=== PATIENT | male | born 1970 | race Caucasian/White ===

== ENCOUNTER 2017-02-13 09:07 | Observation (INO) ==
--- NOTE | 2017-02-13 09:49 | Emergency Department Note ---
Disposition Clinical Impression: Chest pain, rule out acute myocardial infarction Disposition: Admitted As Inpatient Condition: Good Time of Disposition: 12:31 Chest Pain HPI - General Chief Complaint: ED Arrhythmia/Palpitations Stated Complaint: DIZZY/CP Time Seen by Provider: 02/13/17 09:37 Source: patient, family Mode of arrival: private vehicle Limitations: no limitations Vital Signs Reviewed: Yes Nursing Notes Reviewed: Yes - History of Present Illness HPI Narrative: 46 year old male with PMHx of HTN, DM, HLD presentes to ED with CC of chest pressure, dizziness, diaphoresis, that started at 3am this morning and woke him up from his sleep. He was able to calm himself down and go back to sleep. When he got up at 7am and went to walk the dogs, his chest pressure came back. He describes his symptoms as typical chest pain that is substernal and non radiating. He admits to nausea without vomiting, no syncope. admits to diaphoresis, palpitations. He denies diarrhea, denies fever, chills. He admits to shortness of breath. Denies history of MN. His chest pain is non pleuritic in nature. Admits to weakness. Denies hematuria/hematochezia. He denies current chest pain/pressure. Pt complaint: chest pain Onset (ago): hour(s) Duration: intermittent Onset: during exertion Pain Location: substernal Severity scale (1-10): 8 Quality: heaviness Pain Radiation: none Improves with: rest Worsens with: exertion Associated symptoms: Reports: nausea, diaphoresis, palpitations. Denies: vomiting Treatments prior to arrival chest pain: none - Related Data Home Medications Medication Instructions Recorded Confirmed Lisinopril [Zestril] 10 mg PO DAILY 02/13/17 02/13/17 Allergies Allergy/AdvReac Type Severity Reaction Status Date / Time shellfish derived Allergy Anaphylaxis Verified 02/13/17 09:08 All systems ED: reviewed and negative except as stated. Chest Pain PMH - Past Medical History Medical history: Reports: diabetes, hyperlipidemia, hypertension Psychiatric history: Reports: no psych history - Social History Smoking Status: Current every day smoker Alcohol use: Reports: occasionally Drug use: Reports: none Physical Exam - General Limitations: no limitations General appearance: alert, in no apparent distress, lethargic - Head Head exam: atraumatic, normocephalic - Eye Eye exam: Present: normal appearance - Neck Neck exam: Present: normal inspection, trachea midline - Chest Chest inspection: Present: normal inspection, symmetric chest wall rise - Respiratory Respiratory exam: Present: normal lung sounds bilaterally - Cardiovascular Cardiovascular exam: Present: regular rate, normal rhythm, +S1, +S2 - Abdominal Exam Abdominal exam: Present: soft, Non-Tender, normal bowel sounds - Extremities Exam Extremities exam: Present: normal inspection. Absent: pedal edema - Back Exam Back exam: Present: normal inspection - Neurological Exam Neurological exam: Present: alert, oriented X3 - Psychiatric Psychiatric exam: Present: anxious - Skin Skin exam: Present: warm, dry, intact Course Vital Signs Temperature 97.5 F L 02/13/17 09:08 Pulse Rate 100 02/13/17 09:08 Respiratory Rate 16 02/13/17 09:08 Blood Pressure 159/104 02/13/17 09:08 O2 Sat by Pulse Oximetry 100 02/13/17 09:08 Temperature 97.5 F L 02/13/17 09:08 Pulse Rate 93 02/13/17 12:49 Respiratory Rate 18 02/13/17 13:00 Blood Pressure 118/55 02/13/17 13:00 O2 Sat by Pulse Oximetry 99 02/13/17 12:49 Oxygen Delivery Oxygen Delivery Room Air Chest Pain - MDM Narrative Medical decision making narrative: EKG shows no signs of ischemia. Chest xray showed no acute process. CBC within normal limits. BMP showed potassium of 5. Troponin was negative, chest xray showed no acute process. Patient does have significant risk factors for MN including HTN, HLD, diabetes. He will be admitted to observation as chest pain rule out. Spoke with Lexis Wakefield NP from hospitalist service, who has accepted the patient. - Medical Records Medical records reviewed: Yes I reviewed the patient's medical records. - Lab Data Lab results reviewed: Yes I reviewed the patient's lab results. Result diagrams: 02/13/17 10:23 02/13/17 10:23 Lab Results 02/13/17 02/13/17 02/13/17 Range/Units 10:23 10:23 10:23 WBC 7.1 (4.3-11.1) K/mcL RBC 4.76 (4.19-5.50) M/mcL Hgb 14.7 (12.9-16.9) g/dL Hct 45.7 (37.5-50.1) % MCV 96.0 (83.0-100.0) fL MCH 30.9 (28.0-33.3) pg MCHC 32.2 (31.6-35.5) g/dL RDW 12.9 (11.5-14.5) % Plt Count 200 (140-400) K/mcL MPV 9.8 (9.4-12.4) fL Immature Gran % 0.4 (0-4) % Seg Neutrophils % 92.6 % Lymphocytes % 5.2 % Monocytes % 1.7 % Eosinophils % 0.0 % Basophils % 0.1 % Neutrophils # 6.5 (1.6-8.9) K/mcL Lymphocytes # 0.4 L (0.6-4.6) K/mcL Monocytes # 0.1 (0.0-1.3) K/mcL Eosinophils # 0.0 (0.0-0.6) K/mcL Basophils # 0.0 (0.0-0.2) K/mcL PT (9.4-12.1) Seconds INR APTT (26.0-36.0) Seconds Sodium 137 (136-145) mEq/L Potassium 5.0 H (3.5-4.5) mEq/L Chloride 101 (98-109) mEq/L Carbon Dioxide 19 (19-29) mEq/L BUN 25 (8-26) mg/dL Creatinine 1.09 (0.72-1.25) mg/dL Est GFR ( Amer) > 60 (> 60) Est GFR (Non-Af Amer) > 60 (> 60) BUN/Creatinine Ratio 23 (6-26) Glucose 67 L (70-99) mg/dL Calculated Osmolality 287 (280-300) Calcium 9.9 (8.6-10.8) mg/dL Troponin I 0.01 (0-0.03) ng/mL Urine Color (Yellow) Urine Clarity (Clear) Urine pH (5.0-8.0) pH Units Ur Specific [place] (1.010-1.025) Urine Protein (Neg-Trace) mg/dL Urine Glucose (UA) (Normal) mg/dL Urine Ketones (Negative) mg/dL Urine Blood (Negative) Urine Nitrite (Negative) Urine Bilirubin (Negative) Urine Urobilinogen (Normal) mg/dL Ur Leukocyte Esterase (Negative) Ur Culture Indicated? (NO) 02/13/17 02/13/17 Range/Units 10:23 10:36 WBC (4.3-11.1) K/mcL RBC (4.19-5.50) M/mcL Hgb (12.9-16.9) g/dL Hct (37.5-50.1) % MCV (83.0-100.0) fL MCH (28.0-33.3) pg MCHC (31.6-35.5) g/dL RDW (11.5-14.5) % Plt Count (140-400) K/mcL MPV (9.4-12.4) fL Immature Gran % (0-4) % Seg Neutrophils % % Lymphocytes % % Monocytes % % Eosinophils % % Basophils % % Neutrophils # (1.6-8.9) K/mcL Lymphocytes # (0.6-4.6) K/mcL Monocytes # (0.0-1.3) K/mcL Eosinophils # (0.0-0.6) K/mcL Basophils # (0.0-0.2) K/mcL PT 10.0 (9.4-12.1) Seconds INR 0.9 APTT 31.0 (26.0-36.0) Seconds Sodium (136-145) mEq/L Potassium (3.5-4.5) mEq/L Chloride (98-109) mEq/L Carbon Dioxide (19-29) mEq/L BUN (8-26) mg/dL Creatinine (0.72-1.25) mg/dL Est GFR ( Amer) (> 60) Est GFR (Non-Af Amer) (> 60) BUN/Creatinine Ratio (6-26) Glucose (70-99) mg/dL Calculated Osmolality (280-300) Calcium (8.6-10.8) mg/dL Troponin I (0-0.03) ng/mL Urine Color Yellow (Yellow) Urine Clarity Clear (Clear) Urine pH 5.5 (5.0-8.0) pH Units Ur Specific [place] 1.016 (1.010-1.025) Urine Protein Negative (Neg-Trace) mg/dL Urine Glucose (UA) Normal (Normal) mg/dL Urine Ketones 80 H (Negative) mg/dL Urine Blood Negative (Negative) Urine Nitrite Negative (Negative) Urine Bilirubin Negative (Negative) Urine Urobilinogen Normal (Normal) mg/dL Ur Leukocyte Esterase Negative (Negative) Ur Culture Indicated? NO (NO) - Radiology Data Radiology results reviewed: Yes I reviewed the patient's radiology results. - EKG Data EKG attestation: Yes I reviewed and interpreted this EKG. EKG results narrative: sinus rhythm, normal axis. Ventricular rate 97, WI interval 152, QRS duration: 112, Qt/Qtc: 370/424, P-R-T axes: 48 42 43, no acute ST changes, no signs of ischemia. Heart Score - Score History: Slightly Suspicious EKG: Normal Age: 45-65 Risk Factors: Equal/Greater than 3 risk factor or history of atherosclerotic disease Troponin: Less than normal limit HEART Score Total: 3
[2017-02-13] MEDS ORDERED: Ondansetron 4 MG/2 ML VIAL IVP ONE (10:00)
[2017-02-13] MEDS ORDERED: 0.9 % Sodium Chloride 1,000 ML IVC ONE (10:03)
[2017-02-13] MEDS ORDERED: Aspirin 81 MG TAB.CHEW PO ONE (10:03)
--- NOTE | 2017-02-13 10:35 | Emergency Department Note ---
START Narrative - START START: I examined this patient and my medical decision-making was reviewed with the DRIVER HELPER/PA/Advanced Practice Nurse/Resident Physician. I agree with the documented findings, disposition and treatment plan as described except to the extent set forth below. I did see the patient spoke with him and his and he does have exertional chest pain, diaphoresis, history of diabetes and hypertension. The patient's EKG shows normal sinus rhythm with rate of 97 without ischemic change. Testing is pending patient will likely be admitted for further evaluation of possible acute coronary syndrome. No pleuritic aspect or radiation of the pain. [id number]
[2017-02-13 10:43] LABS: Bilirubin,Urine Negative (Negative); Blood,Urine Negative (Negative); Clarity,Urine Clear (Clear); Color,Urine Yellow (Yellow); Glucose,Urine (UA) Normal (Normal); Ketones,Urine 80 mg/dL (Negative); Leukocyte Esterase,Urine Negative (Negative); Nitrite,Urine Negative (Negative); PH,Urine 5.5 pH Units (5.0-8.0); Protein,Urine Negative (Neg-Trace); Specific Gravity,Urine 1.016 (1.010-1.025); Urobilinogen,Urine Normal (Normal)
[2017-02-13 11:01] LABS: Basophils % 0.1 %; Hematocrit 45.7 % (37.5-50.1); Hemoglobin 14.7 g/dL (12.9-16.9); Immature Granulocytes % 0.4 % (0-4); Lymphocytes # 0.4 K/mcL (0.6-4.6); Lymphocytes % 5.2 %; Mean Corpuscular HGB Conc 32.2 g/dL (31.6-35.5); Mean Corpuscular Hemoglobin 30.9 pg (28.0-33.3); Mean Platelet Volume 9.8 fL (9.4-12.4); Monocytes # 0.1 K/mcL (0.0-1.3); Monocytes % 1.7 %; Neutrophils # 6.5 K/mcL (1.6-8.9); Platelet Count 200 K/mcL (140-400); Red Blood Count 4.76 M/mcL (4.19-5.50); Red Cell Distribution Width 12.9 % (11.5-14.5); Segmented Neutrophils % 92.6 %
[2017-02-13 11:04] LABS: INR 0.9
[2017-02-13 11:12] LABS: BUN/Creatinine Ratio 23 (6-26); Blood Urea Nitrogen 25 mg/dL (8-26); Calcium 9.9 mg/dL (8.6-10.8); Carbon Dioxide 19 mEq/L (19-29); Chloride 101 mEq/L (98-109); Glucose 67 mg/dL (70-99); Osmolality,Calculated 287 (280-300); Sodium 137 mEq/L (136-145); eGFR For African Americans > 60 (> 60); eGFR For Non-African Americans > 60 (> 60)
--- NOTE | 2017-02-13 12:54 | Electrocardiograph Report ---
[facility] Test Date: 2017-02-13 Pat Name: William Perez Department: 102 Room: Gender: M Receipt And Report Clerk: : 1970 Requested By: Wellington Farah Order Number: [id number] Reading MD: Memo Garcia DO Measurements Intervals [place] Rate: 97 P: 48 [place]: 152 QRS: 42 QRSD: 112 T: 43 QT: 370 QTc: 424 Interpretive Statements SINUS RHYTHM MODERATE INTRAVENTRICULAR CONDUCTION DELAY [110+ ms QRS DURATION] Electronically Signed On 02-13-2017 12:52:48 EDT by Memo Garcia DO
[2017-02-13] MEDS ORDERED: Ondansetron 4 MG/2 ML VIAL IVP PRN (14:14)
[2017-02-13] MEDS ORDERED: Naloxone 0.4 MG/ML INJ IVP PRN (14:14)
[2017-02-13] MEDS ORDERED: Acetaminophen 325 MG TABLET PO PRN (14:14)
[2017-02-13] MEDS ORDERED: D5% in Water 1,000 ML IVC PRN (15:01)
[2017-02-13] MEDS ORDERED: *HR* Dextrose 50 % in Water (Syg) 50 ML SYRINGE IVP PRN (15:01)
[2017-02-13] MEDS ORDERED: Dextrose Gel 15 GM PO PRN ×2 (15:01)
--- NOTE | 2017-02-13 15:04 | Internal Med History&Physical ---
<Roney Mcclain - Last Filed: 02/13/17 19:37> Date of Encounter: 02/13/17 Internal Medicine - H&P: HPI History of present illness: Mr. Perez is a 46 year old male Internal Medicine - H&P: Meds Aspirin [Lo-Dose Aspirin EC] 81 mg PO DAILY 02/13/17 [History] Atorvastatin [Lipitor] 10 mg PO HS 02/13/17 [History] Lisinopril [Zestril] 10 mg PO DAILY 02/13/17 [History] Meloxicam 15 mg PO DAILY 02/13/17 [History] Metformin HCl [Metformin HCl ER] 500 mg PO DAILY 02/13/17 [History] Multivitamin [One Daily Essential] 1 tab PO DAILY 02/13/17 [History] [place]-3/Dha/Epa/Fish Oil [Fish Oil 1,000 mg Softgel] 1,000 mg PO DAILY 02/13/17 [History] Allergies shellfish derived Allergy (Verified 02/13/17 09:08) Anaphylaxis All Systems PM: A 10-system review of systems was performed and is negative for pertinent findings except as documented above in the HPI. - Constitutional Vitals: Temp Pulse Resp BP Pulse Ox 98.0 F 99 16 129/78 98 02/13/17 18:50 02/13/17 18:50 02/13/17 18:50 02/13/17 18:50 02/13/17 18:50 Internal Med - H&P Results - Labs CBC & Chem 7: 02/13/17 10:23 02/13/17 10:23 Labs: Cardiac Enzymes 02/13/17 Range/Units 15:59 Troponin I 0.01 (0-0.03) ng/mL - Attending Attestation I examined this patient and my medical decision-making was reviewed with the Advanced Practice Nurse. I agree with the documented findings, disposition and treatment plan as described except to the extent set forth below. Patient is currently chest pain-free. He described an episode of chest tightness with diaphoresis at home brought on by exertion. His heart auscultation reveals regular rate and rhythm S1-S2 with no murmurs. Plan: Monitor on telemetry. Trend troponin. Obtain stress test in the morning. <Lexis Wakefield - Last Filed: 02/13/17 23:04> Date of Encounter: 02/13/17 Time of Encounter: 15:02 Assessment and Plan (1) Chest pain, rule out acute myocardial infarction Current visit: Yes Status: Acute Patient with 2 episodes of chest pain accompanied by shortness of breath, diaphoresis and lightheadedness. Patient has risk factors of HTN, DM, obesity, HLD. EKG showed sinus rhythm, no ST elevations or depressions. Troponin negative at 0.01. CXR showed no acute cardiopulmonary process. continuous traffic monitor specialist serial troponins stress test and echocardiogram in the morning. (2) Hyperkalemia Current visit: Yes Status: Acute Potassium of 5.0. Kayexalate ordered. Recheck chemistry in the morning. (3) HTN (hypertension) Current visit: Yes Status: Acute Continue home doses of lisinopril Qualifiers: Hypertension type: essential hypertension Qualified Code(s): I10 - Essential (primary) hypertension (4) Type 2 diabetes mellitus Current visit: Yes Status: Acute diabetic, heart healthy diet. Hold metformin check blood sugars ACHS sliding scale correction dose ACHS hypoglycemic protocol. Qualifiers: Diabetes mellitus complication status: without complication Diabetes mellitus terminal gauger insulin use: without mcfp use Qualified Code(s): E11.9 - Type 2 diabetes mellitus without complications (5) DVT prophylaxis Current visit: Yes Status: Acute anti-embolic stockings Lovenox 40mg SQ daily. Internal Medicine - H&P: HPI Chief complaint: chest pain Admitted From: Emergency Dept Plans for Post Hospital Care: Home History of present illness: Mr. Perez is a 46 year old male with hypertension, hyperlipidemia, and type 2 diabetes presents to the emergency department today with complaints of chest pain. Patient reports that he was awoken from sleep at 3 AM with chest pain, lightheadedness, and sweating, he describes the pain as dull pressure, and reports he, himself down and went back to sleep. He got up this morning and went to walk his dog to 7 AM and his symptoms returned, with the chest pain in the middle of his chest, nonradiating dull pressure, with sweating, nausea, and palpitations. He reports the chest pain lasts approximately half hour in the palpitations continued. His symptoms were resolved by the time he presented to the emergency department. Evaluation in the emergency department revealed mild hyperkalemia with potassium of 5.0. EKG showed sinus rhythm, chest x-ray showed no acute cardiopulmonary process, troponin was negative at 0.01. On exam , patient alert and oriented, in no acute distress, heart has regular rate and rhythm, lungs are clear bilaterally to auscultation, no peripheral edema. Past Med Surg Social Fam HX - Past Medical History Medical history: diabetes, hyperlipidemia, hypertension Psychiatric history: no psych history - Past Surgical History Surgical History: orthopedic, other (knee surgery, neck surgury) - Social History Smoking Status: Current some day smoker (cigars) Smokeless Tobacco Status: Yes Alcohol use: occasionally Drug use: none - Family History Mother Living Status: Still Living Hx Family Cardiac Disorders: Yes (HTN) Hx Family Endocrine Disorder: Yes (DM) Father Living Status: Age at : 60 Hx Family Cardiac Disorders: Yes (CHF, HTN) Hx Family Respiratory Disorders: Yes (COPD) All Systems PM: A 10-system review of systems was performed and is negative for pertinent findings except as documented above in the HPI. - Constitutional Constitutional: no chills, no fever(s), no night sweats - EENT Eyes: no change in vision, no discharge, no pain, no photophobia Ears: no ear discharge, no ear pain, no tinnitus Nose, mouth and throat: no dysphagia, no nasal discharge, no neck pain, no sore throat - Cardiovascular Cardiovascular ROS IM: chest pain, diaphoresis, dyspnea, lightheadedness, palpitations, no syncope - Respiratory Respiratory: dyspnea, no cough, no wheezing, no excessive phlegm production - Gastrointestinal Gastrointestinal: no abdominal pain, no diarrhea, no hematemesis, no hematochezia, no melena, no nausea, no vomiting - Musculoskeletal Musculoskeletal ROS IM: no numbness, no tingling - Integumentary Integumentary IM: no rash, no unusual bruising - Neurological Neurological ROS: no confusion, no convulsions, no focal weakness, no numbness, no tingling, no tremor(s) - Hematologic/Lymphatic Hematologic/Lymphatic: no easy bruising - Constitutional Vitals: Temp Pulse Resp BP Pulse Ox 97.6 F 86 15 129/80 100 02/13/17 14:58 02/13/17 14:58 02/13/17 14:58 02/13/17 14:58 02/13/17 14:58 General appearance: Present: A&O X 3 - Head Head exam: Present: atraumatic, normocephalic - Eye Eye exam: Present: PERRL, conjuntiva pink, sclera anicteric Pupils: Present: PERRL - Neck Neck exam general surgery: Present: supple, trachea midline. Absent: lymphadenopathy - Respiratory Respiratory exam: Present: CTAB. Absent: accessory muscle use, rales, rhonchi, wheezes - Cardiovascular Cardiovascular exam: Present: RRR, +S1, +S2. Absent: diastolic murmur, gallop, rubs, systolic murmur - GI/Abdominal GI/Abdominal exam: Present: normal bowel sounds, soft, no peritoneal signs. Absent: distended, tenderness - Extremities Exam Extremities exam: Present: warm, radial pulses palpable and symetrical. Absent : calf tenderness, cyanotic, pedal edema - Neurological Exam Neurological exam: Present: CN II-XII intact, oriented X3, no focal deficits. Absent: facial droop, speech deficit - Skin Skin exam: Present: dry, intact Internal Med - H&P Results - Labs CBC & Chem 7: 02/13/17 10:23 02/13/17 10:23 Labs: All Lab Results (24 Hours) 02/13/17 02/13/17 02/13/17 Range/Units 10:23 10:23 10:23 WBC 7.1 (4.3-11.1) K/mcL RBC 4.76 (4.19-5.50) M/mcL Hgb 14.7 (12.9-16.9) g/dL Hct 45.7 (37.5-50.1) % MCV 96.0 (83.0-100.0) fL MCH 30.9 (28.0-33.3) pg MCHC 32.2 (31.6-35.5) g/dL RDW 12.9 (11.5-14.5) % Plt Count 200 (140-400) K/mcL MPV 9.8 (9.4-12.4) fL Immature Gran % 0.4 (0-4) % Seg Neutrophils % 92.6 % Lymphocytes % 5.2 % Monocytes % 1.7 % Eosinophils % 0.0 % Basophils % 0.1 % Neutrophils # 6.5 (1.6-8.9) K/mcL Lymphocytes # 0.4 L (0.6-4.6) K/mcL Monocytes # 0.1 (0.0-1.3) K/mcL Eosinophils # 0.0 (0.0-0.6) K/mcL Basophils # 0.0 (0.0-0.2) K/mcL PT (9.4-12.1) Seconds INR APTT (26.0-36.0) Seconds Sodium 137 (136-145) mEq/L Potassium 5.0 H (3.5-4.5) mEq/L Chloride 101 (98-109) mEq/L Carbon Dioxide 19 (19-29) mEq/L BUN 25 (8-26) mg/dL Creatinine 1.09 (0.72-1.25) mg/dL Est GFR ( Amer) > 60 (> 60) Est GFR (Non-Af Amer) > 60 (> 60) BUN/Creatinine Ratio 23 (6-26) Glucose 67 L (70-99) mg/dL Calculated Osmolality 287 (280-300) Calcium 9.9 (8.6-10.8) mg/dL Troponin I 0.01 (0-0.03) ng/mL Urine Color (Yellow) Urine Clarity (Clear) Urine pH (5.0-8.0) pH Units Ur Specific [place] (1.010-1.025) Urine Protein (Neg-Trace) mg/dL Urine Glucose (UA) (Normal) mg/dL Urine Ketones (Negative) mg/dL Urine Blood (Negative) Urine Nitrite (Negative) Urine Bilirubin (Negative) Urine Urobilinogen (Normal) mg/dL Ur Leukocyte Esterase (Negative) Ur Culture Indicated? (NO) 02/13/17 02/13/17 Range/Units 10:23 10:36 WBC (4.3-11.1) K/mcL RBC (4.19-5.50) M/mcL Hgb (12.9-16.9) g/dL Hct (37.5-50.1) % MCV (83.0-100.0) fL MCH (28.0-33.3) pg MCHC (31.6-35.5) g/dL RDW (11.5-14.5) % Plt Count (140-400) K/mcL MPV (9.4-12.4) fL Immature Gran % (0-4) % Seg Neutrophils % % Lymphocytes % % Monocytes % % Eosinophils % % Basophils % % Neutrophils # (1.6-8.9) K/mcL Lymphocytes # (0.6-4.6) K/mcL Monocytes # (0.0-1.3) K/mcL Eosinophils # (0.0-0.6) K/mcL Basophils # (0.0-0.2) K/mcL PT 10.0 (9.4-12.1) Seconds INR 0.9 APTT 31.0 (26.0-36.0) Seconds Sodium (136-145) mEq/L Potassium (3.5-4.5) mEq/L Chloride (98-109) mEq/L Carbon Dioxide (19-29) mEq/L BUN (8-26) mg/dL Creatinine (0.72-1.25) mg/dL Est GFR ( Amer) (> 60) Est GFR (Non-Af Amer) (> 60) BUN/Creatinine Ratio (6-26) Glucose (70-99) mg/dL Calculated Osmolality (280-300) Calcium (8.6-10.8) mg/dL Troponin I (0-0.03) ng/mL Urine Color Yellow (Yellow) Urine Clarity Clear (Clear) Urine pH 5.5 (5.0-8.0) pH Units Ur Specific [place] 1.016 (1.010-1.025) Urine Protein Negative (Neg-Trace) mg/dL Urine Glucose (UA) Normal (Normal) mg/dL Urine Ketones 80 H (Negative) mg/dL Urine Blood Negative (Negative) Urine Nitrite Negative (Negative) Urine Bilirubin Negative (Negative) Urine Urobilinogen Normal (Normal) mg/dL Ur Leukocyte Esterase Negative (Negative) Ur Culture Indicated? NO (NO) - Diagnostic Studies Chest x-ray Additional comments: Chest X-Ray 02/13/17 10:03 IMPRESSION: No evidence of acute cardiopulmonary disease. D/ / Kike Fernandez MD / Kike Fernandez MD Interpreting Provider: Kike Fernandez MD
[2017-02-13] MEDS: Insulin LISPRO 300 UNITS/3 ML VIAL SQ SCH (17:13)
[2017-02-13] MEDS ORDERED: Insulin LISPRO 300 UNITS/3 ML VIAL SQ SCH (21:00)
[2017-02-14 06:56] LABS: Basophils % 0.2 %; Eosinophils # 0.1 K/mcL (0.0-0.6); Eosinophils % 1.6 %; Hematocrit 38.9 % (37.5-50.1); Immature Granulocytes % 0.2 % (0-4); Lymphocytes # 1.1 K/mcL (0.6-4.6); Lymphocytes % 21.9 %; Mean Corpuscular HGB Conc 33.2 g/dL (31.6-35.5); Mean Corpuscular Hemoglobin 31.2 pg (28.0-33.3); Mean Platelet Volume 9.9 fL (9.4-12.4); Monocytes # 0.7 K/mcL (0.0-1.3); Monocytes % 13.2 %; Neutrophils # 3.2 K/mcL (1.6-8.9); Platelet Count 179 K/mcL (140-400); Red Blood Count 4.14 M/mcL (4.19-5.50); Red Cell Distribution Width 13.2 % (11.5-14.5); Segmented Neutrophils % 62.9 %
[2017-02-14] MEDS ORDERED: *HR* Enoxaparin 40 MG/0.4 ML SYRINGE SQ SCH (07:00)
[2017-02-14 07:10] LABS: BUN/Creatinine Ratio 18 (6-26); Blood Urea Nitrogen 17 mg/dL (8-26); Calcium 8.6 mg/dL (8.6-10.8); Carbon Dioxide 22 mEq/L (19-29); Chloride 107 mEq/L (98-109); Glucose 109 mg/dL (70-99); Osmolality,Calculated 288 (280-300); Potassium 4.5 mEq/L (3.5-4.5); Sodium 138 mEq/L (136-145); eGFR For African Americans > 60 (> 60); eGFR For Non-African Americans > 60 (> 60)
[2017-02-14 07:23] LABS: Hemoglobin 12.9 g/dL (12.9-16.9)
[2017-02-14] MEDS: Insulin LISPRO 300 UNITS/3 ML VIAL SQ SCH ×2 (07:26→11:46)
[2017-02-14] MEDS ORDERED: Aspirin Enteric Coated 81 MG Tablet PO SCH (09:00)
--- NOTE | 2017-02-14 10:08 | Nuclear Medicine Stress Report ---
Exercise Nuclear Stress Name: William Perez Date of Study: 02/14/2017 Date: 1970 Ht: 72.0 in Medical Record#: [id number] Age: 46 Wt: 250.0 lb Gender: Male Order #: [id number] Location: [facility] IP Room: [facility] Supervising Provider: Daniel Faye CNP Reading Physician: Dick Glass DO, FAC, [facility] Ordering Physician: Letty Jett CNP Primary Care Physician: Memo Garcia DO Stress Technologist: Maryjane Garces, JESSE Behavior Analyst: Mauricio Heard Indications: Chest Pain Impression: Exercise ECG is negative for ischemia. Gated EF = 55%. Small sized, mild intensity, fixed apical inferior defect c/w artifact. Perfusion imaging was negative for ischemia or infarct. History: Hypertension Diabetes Hypercholesteremia History of Smoking Stress Test Summary: Stress Test Type: Treadmill Protocol: [place] Baseline Information: Initial Heart Rate: 84 Blood Pressure: 174/148 Stress Information: Stress Time: 8 min 00 sec Test Terminated Due to (primary): Fatigue Maximum Blood Pressure: 166/90 Maximum Heart Rate: 164 Percent Maximum Heart Rate Achieved: 94 METS Reached: 10.1 Symptoms: Shortness of breath, Fatigue Nuclear Summary: SPECT myocardial perfusion imaging using Tc99m Sestamibi given intravenously was performed at rest and following cardiac stress testing. The resting images were obtained following initial dose of 11.6 mCi. Following stress an additional dose of 32.5 mCi was given at peak exercise or 30 seconds post regadenoson infusion. Medication Given: Time Medication Dose Units Route Findings: Stress Note * Resting ECG demonstrated normal sinus rhythm. * No baseline arrhythmias were noted. * Exercise ECG is negative for ischemia. * No arrhythmias were noted during stress. * The exercise capacity was good. * Patient had no chest pain during stress. * Normal hemodynamic responses to exercise. Study Quality * Study quality is good. Gated EF % * Gated EF = 55%. Left Ventricle * LVEDV = 130 mL. * Normal wall motion. Inferior Perfusion Rest * The apical inferior segment shows a mild reduction in perfusion. Inferior Perfusion Stress * The apical inferior segment shows a mild reduction in perfusion. TID * No evidence of transient ischemic dilatation. TID ratio = 0.71. Lung Uptake * There is no evidence of increase lung uptake. Updated by Dick Glass DO, LEN, GISELLE, ASHISH on 02/14/2017 10:03:20 AM electronically signed on 02/14/2017 10:04:23 AM with status of Final
[2017-02-14 11:21] VITALS: BP 136/85
--- NOTE | 2017-02-14 14:09 | Discharge Summary ---
Date of Encounter: 02/14/17 Time of Encounter: 13:30 - Discharge Diagnosis (1) Chest pain, rule out acute myocardial infarction Priority: Primary Status: Resolved Comments: Patient denied chest pain or shortness of breath while admitted. Chest x-ray negative. Echocardiogram unremarkable with ejection fraction of 55-60%. Stress test negative. ACS rule out. (2) HTN (hypertension) Priority: Secondary Status: Chronic Comments: Controlled with his home dose of lisinopril, follow up outpatient Qualifiers: Hypertension type: essential hypertension Qualified Code(s): I10 - Essential (primary) hypertension (3) Type 2 diabetes mellitus Priority: Secondary Status: Chronic Comments: Appears controlled, no recent A1c, follow up outpatient Qualifiers: Diabetes mellitus complication status: without complication Diabetes mellitus joint terminal attack controller insulin use: without alf use Qualified Code(s): E11.9 - Type 2 diabetes mellitus without complications (4) DVT prophylaxis Priority: Primary Status: Acute Comments: Subcutaneous Lovenox while admitted (5) Hyperkalemia Priority: Primary Status: Resolved - Discharge Medications Home Medications: Aspirin [Lo-Dose Aspirin EC] 81 mg PO DAILY 02/13/17 [History] Atorvastatin [Lipitor] 10 mg PO HS 02/13/17 [History] Lisinopril [Zestril] 10 mg PO DAILY 02/13/17 [History] Meloxicam 15 mg PO DAILY 02/13/17 [History] Metformin HCl [Metformin HCl ER] 500 mg PO DAILY 02/13/17 [History] Multivitamin [One Daily Essential] 1 tab PO DAILY 02/13/17 [History] Narvon-3/Dha/Epa/Fish Oil [Fish Oil 1,000 mg Softgel] 1,000 mg PO DAILY 02/13/17 [History] Allergies/Adverse Reactions: Allergies shellfish derived Allergy (Verified 02/13/17 09:08) Anaphylaxis Procedures/tests Complete & Pending: Procedures Performed prior 72 hours Category Date Time Status NM lauren perf SPECT multi [NM] Routine Exams 02/13/17 15:00 Taken ECG 12 lead ECG [ECG] AM 0600 Y 02/14/17 06:00 Ordered EV echocardiogram Routine Y 02/14/17 14:59 Completed SP exercise nuclear stress Routine Y 02/14/17 14:59 Completed Date of admission: 02/13/17 12:52 Primary care physician: Waqar Saenz Discharging clinician: Letty Jett Anticipated date of discharge: 02/14/17 - Patient Status Disposition: Home, Self-Care Condition: Good Functional capacity at discharge: independent ambulation Overall status at discharge: patient is back to baseline - Discharge Instructions Follow Up With: Memo Garcia DO [Primary Care Provider] - Additional Instructions: Follow-up with primary care provider within one to 2 weeks - Diet and Activity Activity: increase activity as tolerated Diet: diabetic diet, low fat, low cholesterol, low salt diet Hospital course: Mr. Perez is a 46 year old male with past medical history of hypertension, hyperlipidemia, diabetes. Presented to the emergency department chief complaint of chest pain. Patient stating he woke up in the middle the night with chest pain, lightheadedness, and sweating. He described the pain as a dull pressure patient then went back to sleep and woke up later on in the morning and when he went to walk his dog, his symptoms returned with chest pain in the middle of his chest that did not radiate and was described as dull pressure and associated with sweating, nausea, and palpitations. Patient stating the chest pain lasted approximately half an hour but the palpitations had continued. Patient however was asymptomatic before he presented to the emergency department. Workup in the emergency department revealing mild hyperkalemia. EKG with normal sinus rhythm, chest x-ray negative. Patient was admitted to the hospitalist service for further evaluation and management. Troponins were negative. Echocardiogram unremarkable with ejection fraction of 55-60% and mild diastolic dysfunction. Patient euvolemic on examination throughout this admission. Patient denied chest pain or shortness of breath throughout this admission. He had an exercise stress test that was negative for ischemia or infarct. ACS ruled out. Patient's was concerned that he possibly had atrial fibrillation because when she listened to his heart at home , she thought that the rhythm sounded irregular. Reviewed his telemetry during this admission, normal sinus rhythm with a lot of artifact noted, recommend follow-up outpatient with possible Holter monitor if clinically indicated on an outpatient basis. He was discharged home in stable condition with close outpatient follow-up recommended. ITS Impressions Chest X-Ray 02/13/17 10:03 IMPRESSION: No evidence of acute cardiopulmonary disease. D/ / Kike Fernandez MD / Kike Fernandez MD Interpreting Provider: Kike Fernandez MD Echocardiogram impressions: LVEF 55-60%. Normal LV chamber size, wall thickness and function. Mild left ventricular diastolic dysfunction. Normal right ventricular structure and function. No evidence of pulmonary hypertension. No significant valvular dysfunction. Exercise nuclear stress impression: Exercise ECG is negative for ischemia. Gaited ejection fraction equals 55%. Small size, mild intensity, fixed apical inferior defect consistent with artifact. Perfusion imaging was negative for ischemia or infarct. - Time Spent with Patient Total time spent providing and/or coordinating discharge services: - Constitutional Vitals: Temp Pulse Resp BP Pulse Ox 98.0 F 70 16 136/85 99 02/14/17 11:21 02/14/17 11:21 02/14/17 11:21 02/14/17 11:21 02/14/17 11:21 General appearance: Present: A&O X 3, pleasant, no acute distress, answers questions appropriately - Head Head exam: Present: atraumatic, normocephalic - Eye Eye exam: Present: PERRL, conjuntiva pink, sclera anicteric Pupils: Present: PERRL - Neck Neck exam general surgery: Present: supple, trachea midline. Absent: lymphadenopathy - Respiratory Respiratory exam: Present: decreased breath sounds. Absent: accessory muscle use, rales, respiratory distress, rhonchi, wheezes - Cardiovascular Cardiovascular exam: Present: RRR, +S1, +S2. Absent: diastolic murmur, gallop, rubs, systolic murmur - GI/Abdominal GI/Abdominal exam: Present: normal bowel sounds, soft, no peritoneal signs. Absent: distended, tenderness - Extremities Exam Extremities exam: Present: warm, radial pulses palpable and symetrical. Absent : calf tenderness, cyanotic, pedal edema - Neurological Exam Neurological exam: Present: alert, CN II-XII intact, normal gait, oriented X3, no focal deficits, strengths equal and symetr throughout. Absent: pronater drift, facial droop, speech deficit - Skin Skin exam: Present: dry, intact, normal color, warm
== END 2017-02-14 14:41 | disposition home or self-care (01) ==
LOC: 3BNU 09:07 → EMEROO 09:07 → 3BNU 13:13
PROVIDERS: ADMIT Internal Medicine; ATTEND Nurse Practitioner Family